=== PATIENT | male | born 1955 | race Caucasian/White ===

== ENCOUNTER 2016-09-05 09:30 | Emergency (ER) | payer BC, OTHER ==
[~2016-09-05] VITALS: Ht 175.3 cm; Wt 98.1 kg
[2016-09-05 09:39] VITALS: TEMP 36.5; Ht 175.3 cm; Wt 98.1 kg
[2016-09-05] MEDS ORDERED: HYDROmorphone INJ 1 MG/ML SYR IV STA (09:50)
[2016-09-05] MEDS ORDERED: SODIUM CHLORIDE 0.9% 1000ML 1,000 ML IV STA (09:50)
[2016-09-05] MEDS ORDERED: KETOROLAC TROMETHAMINE 30 MG/ML VIAL IV STA (09:50)
[2016-09-05] MEDS ORDERED: ONDANSETRON INJ 2 MG/ML 2 ML VIAL IV STA (09:50)
[2016-09-05 10:11] LABS: URINE APPEARANCE CLOUDY (CLEAR); URINE COLOR ORANGE; URINE EPITHELIAL CELL AUTO >30 /lpf (0-5); URINE NITRITE NEG (NEG); URINE PH 5.5 (4.5-7.5); URINE SPECIFIC GRAVITY 1.036 (1.000-1.030); UROBILINOGEN NEG (NEG)
--- NOTE | 2016-09-05 10:12 | EMERGENCY ROOM VISIT NOTE ---
History Report prepared by Tala: Javier Cano Under the Supervision of: Dr. Luis Adkins M.D. First contact with patient: 09:46 Chief Complaint: FLANK PAIN Stated Complaint: BACK PAIN POSS. KIDNEY STONE History of Present Illness The patient is a 61 year old male who presents to the Emergency Room with complaints of worsening left sided flank pain that started three days ago. He rates his pain as a 9/10 in severity and reports that the pain radiates to his abdomen. The patient states that he has been also been experiencing swelling to her left flank and vomiting that occurred prior to arrival. The patient states that his symptoms worsened today when he woke up around 0600, which prompted him to visit the ED. He admits that he had a bowel movement around 0630, but states that he always feels that he needs to have a bowel movement, but usually is not able to. Source of History: patient Onset: three days ago Position: other (left sided CVA) Symptom Intensity: 9/10 Timing: worsening Associated Symptoms: + abdominal pain Review of Systems See HPI for pertinent positives & negatives. A total of 10 systems reviewed and were otherwise negative. Past Medical & Surgical Medical Problems: (1) Diabetes (2) Kidney stones (3) Pneumonia Surgical Problems: (1) [place] teeth extracted Family History Heart disease Social History Smoking Status: Never Smoker Smokeless Tobacco Use: No Alcohol Use: occasionally Drug Use: none Marital Status: Housing Status: lives with significant other Occupation Status: employed Current/Historical Medications Scheduled Aspirin (Aspirin Ec), 81 MG PO DAILY Glimepiride (Glimepiride), Unknown Dose PO DAILY Insulin Glargine (Lantus), 40 UNITS SC AMPM Metformin Hcl (Glucophage), 1,000 MG PO BID Simvastatin (Zocor), Unknown Dose PO QPM Tamsulosin Hcl (Flomax), 0.4 MG PO DAILY Scheduled PRN Oxycodone/Acetaminophen 5MG/325MG (Percocet 5MG/325MG), 1-2 TAB PO Q4H PRN for Pain Allergies Coded Allergies: Penicillins (Unverified Allergy, Mild, UNKNOWN, 09/05/16) Physical Exam Vital Signs Date Time Temp Pulse Resp B/P (MAP) Pulse Ox O2 Delivery O2 Flow Rate FiO2 09/05/16 12:03 76 14 137/81 98 09/05/16 11:29 76 14 137/81 98 Room Air 09/05/16 10:36 72 20 161/101 97 Room Air 09/05/16 09:39 36.5 71 18 186/101 97 Room Air Physical Exam GENERAL: Patient is a healthy-appearing well-nourished 61 year old male. HEAD: Normocephalic atraumatic EYES: Ocular movements intact pupils equal and react to light OROPHARYNX mucous membranes are moist no exudates present no erythema or edema present NECK: Supple no nuchal rigidity CHEST: Good equal expansion LUNGS: Clear and equal to auscultation CARDIAC: Normal S1 and S2 ABDOMEN: Soft nontender no guarding BACK: No CVA tenderness EXTREMITIES: No pain upon palpation normal muscle strength in all groups no clubbing cyanosis or edema NEURO: Patient is following commands and answering questions appropriately. Alert and oriented x3 Cranial Nerves 2-12 grossly intact Medical Decision & Procedures ER Provider Diagnostic Interpretation: CT results as stated below per my review and radiologist interpretation: CT OF THE ABDOMEN AND PELVIS WITHOUT CONTRAST, STONE PROTOCOL CLINICAL HISTORY: Left flank pain. Microscopic hematuria. COMPARISON STUDY: None. TECHNIQUE: Helical axial images of the abdomen and pelvis were obtained without IV or oral contrast according to renal stone protocol. A dose lowering technique was utilized adhering to the principles of ALARA. FINDINGS: A 4 mm distal left ureteral calculus results in mild left hydroureteronephrosis with mild left perinephric infiltration. There are no additional urinary calculi. Evaluation the remainder of the abdomen and pelvis is suboptimal on this unenhanced exam. The liver, spleen, adrenal glands and pancreas are normal. There is no right hydronephrosis. The appendix is normal. CT results as stated below per my review and radiologist interpretation: There is no bowel obstruction. There is colonic diverticulosis without evidence for acute diverticulitis. There are fat-containing bilateral inguinal hernias. There is no ascites. There are no suspicious osseous lesions. IMPRESSION: 4 mm distal left ureteral calculus with resultant mild left hydroureteronephrosis and mild left perinephric and periureteral infiltration. Electronically signed by: Ean Bradley M.D. 09/05/2016 11:35 AM Dictated Date/Time: 09/05/2016 11:31 AM Laboratory Results 09/05/16 10:15 Red Blood Count 4.95, Mean Corpuscular Volume 86.7, Mean Corpuscular Hemoglobin 31.1, Mean Corpuscular Hemoglobin Concent 35.9, Mean Platelet Volume 9.1, Neutrophils (%) (Auto) 76.3, Lymphocytes (%) (Auto) 16.3, Monocytes (%) (Auto) 6.2, Eosinophils (%) (Auto) 0.8, Basophils (%) (Auto) 0.1, Neutrophils # (Auto) 5.99, Lymphocytes # (Auto) 1.28, Monocytes # (Auto) 0.49, Eosinophils # (Auto) 0.06, Basophils # (Auto) 0.01 09/05/16 10:15 Test 09/05/16 09:50 09/05/16 10:15 Urine Color ORANGE Urine Appearance CLOUDY (CLEAR) Urine pH 5.5 (4.5-7.5) Urine Specific [place] 1.036 (1.000-1.030) Urine Protein 1+ (NEG) Urine Glucose (UA) 1+ (NEG) Urine Ketones TRACE (NEG) Urine Occult Blood 3+ (NEG) Urine Nitrite NEG (NEG) Urine Bilirubin NEG (NEG) Urine Urobilinogen NEG (NEG) Urine Leukocyte Esterase TRACE (NEG) Urine WBC (Auto) 1-5 /hpf (0-5) Urine RBC (Auto) >30 /hpf (0-4) Urine Hyaline Casts (Auto) /lpf (0-5) Urine Epithelial Cells (Auto) >30 /lpf (0-5) Urine Bacteria (Auto) NEG (NEG) Urine Pathogenic Casts /lpf (0) Urine Mucus PRESENT (NONE PRSENT) White Blood Count 7.85 K/uL (4.8-10.8) Red Blood Count 4.95 M/uL (4.7-6.1) Hemoglobin 15.4 g/dL (14.0-18.0) Hematocrit 42.9 % (42-52) Mean Corpuscular Volume 86.7 fL (80-100) Mean Corpuscular Hemoglobin 31.1 pg (25-34) Mean Corpuscular Hemoglobin Concent 35.9 g/dl (32-36) Platelet Count 220 K/uL (130-400) Mean Platelet Volume 9.1 fL (7.4-10.4) Neutrophils (%) (Auto) 76.3 % Lymphocytes (%) (Auto) 16.3 % Monocytes (%) (Auto) 6.2 % Eosinophils (%) (Auto) 0.8 % Basophils (%) (Auto) 0.1 % Neutrophils # (Auto) 5.99 K/uL (1.4-6.5) Lymphocytes # (Auto) 1.28 K/uL (1.2-3.4) Monocytes # (Auto) 0.49 K/uL (0.11-0.59) Eosinophils # (Auto) 0.06 K/uL (0-0.5) Basophils # (Auto) 0.01 K/uL (0-0.2) RDW Standard Deviation 39.8 fL (36.4-46.3) RDW Coefficient of Variation 12.4 % (11.5-14.5) Immature Granulocyte % (Auto) 0.3 % Immature Granulocyte # (Auto) 0.02 K/uL (0.00-0.02) Anion Gap 7.0 mmol/L (3-11) Est Creatinine Clear Calc Drug Dose 80.4 ml/min Estimated GFR () 82.9 Estimated GFR (Non- 71.6 BUN/Creatinine Ratio 14.9 (10-20) Calcium Level 9.8 mg/dl (8.5-10.1) Total Bilirubin 1.0 mg/dl (0.2-1) Direct Bilirubin 0.2 mg/dl (0-0.2) Aspartate Amino Transf (AST/SGOT) 25 U/L (15-37) Alanine Aminotransferase (ALT/SGPT) 41 U/L (12-78) Alkaline Phosphatase 65 U/L (45-117) Total Protein 7.8 gm/dl (6.4-8.2) Albumin 4.1 gm/dl (3.4-5.0) Lipase 227 U/L (73-393) Labs reviewed by ED physician. Medications Administered Medications (Trade) Dose Ordered Sig/Joanna Route Start Time Stop Time Status Last Admin Dose Admin Sodium Chloride 1,000 ml @ 999 mls/hr Q1H1M STAT IV 09/05/16 09:50 09/05/16 10:50 DC 09/05/16 10:18 999 MLS/HR Ketorolac Tromethamine (Toradol Inj) 30 mg NOW STAT IV 09/05/16 09:50 09/05/16 09:52 DC 09/05/16 10:17 30 MG Hydromorphone HCl (Dilaudid Inj) 1 mg NOW STAT IV 09/05/16 09:50 09/05/16 09:52 DC 09/05/16 10:18 1 MG Ondansetron HCl (Zofran Inj) 4 mg NOW STAT IV 09/05/16 09:50 09/05/16 09:52 DC 09/05/16 10:17 4 MG Tamsulosin HCl (Flomax Cap) 0.4 mg NOW STAT PO 09/05/16 11:38 09/05/16 11:39 DC 09/05/16 11:53 0.4 MG ED Course 0948: Past medical records reviewed. The patient was evaluated in room B11B. A complete history and physical examination was performed. 0950: Zofran Injection 4 mg IV, Dilaudid Injection 1 mg IV, Toradol Injection 30 mg IV, Sodium Chloride 1000 ml @ 999 mls/hr IV. 1138: Flomax Cap 0.4 mg PO. 1204: Upon reexamination the patient is resting comfortably. I discussed results and treatment plan with the patient. He verbalizes agreement and understanding. The patient is ready for discharge. Medical Decision The differential diagnosis includes but is not limited to: etiologies such as appendicitis, diverticulitis, PUD, biliary pathology, UTI, pancreatitis, obstruction, mesenteric ischemia, aortic pathology, infections, inflammatory bowel disease, renal colic, as well as others were entertained. Medication Reconciliation: I attest that I have personally reviewed the patient' s current medication list Blood Pressure Screening: Patient was found to have an elevated blood pressure and was referred to their primary care doctor for recheck and further treatment This is a 61-year-old male presents emergency department complaining of flank pain. The patient does appear to be uncomfortable. An IV was established, patient given normal saline bolus, Dilaudid, Zofran. Repeat examination revealed improvement in the patient's symptoms. The patient does have a kidney stone on CAT scan. Serial abdominal examinations were performed on the patient in the emergency department in no time did the patient exhibit a surgical abdomen. He is afebrile and I feel can be discharged home for conservative treatment of a kidney stone. He was started on Flomax and I will continue him on Percocet. He has no evidence of infection and urine. Patient was in agreement with treatment plan. Impression Primary Impression: Kidney stone Scribe Attestation The scribe's documentation has been prepared under my direction and personally reviewed by me in its entirety. I confirm that the note above accurately reflects all work, treatment, procedures, and medical decision making performed by me. Departure Information Dispostion Home / Self-Care Prescriptions Oxycodone/Acetaminophen 5MG/325MG (PERCOCET 5MG/325MG) Tab 1-2 TAB PO Q4H Y for Pain, #20 TAB Prov: Luis Adkins MD 09/05/16 Tamsulosin Hcl (FLOMAX) 0.4 Mg Cap 0.4 MG PO DAILY for 10 Days, #10 CAP Prov: Luis Adkins MD 09/05/16 Referrals Chelly Hogan D.O. (PCP) Forms HOME CARE DOCUMENTATION FORM, IMPORTANT VISIT INFORMATION Patient Instructions Hypertension Dc, Kidney Stones - [facility], Kidney Stones Expectant Therapy, Kidney Stones Identify, [facility] Additional Instructions Follow up with DR Ness office Return if you develop fevers or pain out of control You were found to have an elevated blood pressure today (>120 sytolic or >90 diastolic). Per medicare guidelines, you need to follow up with this blood pressure screening with your Primary Care Physician (PCP). For a new PCP call [phone]. You received narcotic or benzodiazepene medication while in the emergency room today. Do not drive, operate heavy machinery, or drink alcohol under the influence of this medication. Take 600 mg Ibuprofen every 6 hours Take Percocet for breakthrough pain You have been examined and treated today on an emergency basis only. This is not a substitute for, or an effort to provide, complete comprehensive medical care. It is impossible to recognize and treat all injuries or illnesses in a single emergency department visit. It is therefore important that you follow up closely with Dr Hogan. Call as soon as possible for an appointment. Thank you for your time and consideration. I look forward to speaking with you again soon. Please don't hesitate to call us if you have any questions.
[2016-09-05 10:38] LABS: BASO % 0.1 %; BASO ABS # 0.01 K/uL (0-0.2); COMPLETE YES; EOS % 0.8 %; HEMATOCRIT 42.9 % (42-52); IG% 0.3 %; LYMPH % 16.3 %; LYMPH ABS # 1.28 K/uL (1.2-3.4); MEAN CELL VOLUME 86.7 fL (80-100); MEAN CORPUSCULAR HEMOGLOBIN 31.1 pg (25-34); MEAN CORPUSCULAR HGB CONC 35.9 g/dl (32-36); MEAN PLATELET VOLUME 9.1 fL (7.4-10.4); MONO % 6.2 %; NEUT % 76.3 %; PLATELET COUNT 220 K/uL (130-400); RED BLOOD COUNT 4.95 M/uL (4.7-6.1); WHITE BLOOD COUNT 7.85 K/uL (4.8-10.8)
[2016-09-05 10:40] LABS: MANUAL MICROSCOPIC REQUIRED? NO; REVIEW REQ? YES; URINE BILIRUBIN NEG (NEG)
[2016-09-05 10:51] LABS: URINE MUCUS PRESENT (NONE PRSENT)
[2016-09-05 10:55] LABS: BUN/CREATININE RATIO 14.9 (10-20); CALCIUM 9.8 mg/dl (8.5-10.1); CREATININE 1.1 mg/dl (0.60-1.40); POTASSIUM 3.9 mmol/L (3.5-5.1)
--- NOTE | 2016-09-05 11:36 | DIAGNOSTIC IMAGING REPORT ---
CT OF THE ABDOMEN AND PELVIS WITHOUT CONTRAST, STONE PROTOCOL CLINICAL HISTORY: Left flank pain. Microscopic hematuria. COMPARISON STUDY: None. TECHNIQUE: Helical axial images of the abdomen and pelvis were obtained without IV or oral contrast according to renal stone protocol. A dose lowering technique was utilized adhering to the principles of ALARA. FINDINGS: A 4 mm distal left ureteral calculus results in mild left hydroureteronephrosis with mild left perinephric infiltration. There are no additional urinary calculi. Evaluation the remainder of the abdomen and pelvis is suboptimal on this unenhanced exam. The liver, spleen, adrenal glands and pancreas are normal. There is no right hydronephrosis. The appendix is normal. There is no bowel obstruction. There is colonic diverticulosis without evidence for acute diverticulitis. There are fat-containing bilateral inguinal hernias. There is no ascites. There are no suspicious osseous lesions. IMPRESSION: 4 mm distal left ureteral calculus with resultant mild left hydroureteronephrosis and mild left perinephric and periureteral infiltration. Electronically signed by: Ean Bradley M.D. 09/05/2016 11:35 AM Dictated Date/Time: 09/05/2016 11:31 AM
[2016-09-05] MEDS ORDERED: TAMSULOSIN HCL 0.4 MG CAP PO STA (11:38)
[2016-09-05] MEDS ORDERED: METF-384 PO (11:39)
[2016-09-05] MEDS ORDERED: GLIM2TAB2 PO (11:39)
[2016-09-05] MEDS ORDERED: SIMV5TAB2 PO (11:41)
[2016-09-05] MEDS ORDERED: ASPI81TA28 PO (11:41)
[2016-09-05] MEDS ORDERED: INSDGI SC (11:41)
[2016-09-05] MEDS ORDERED: TAMS0.4C38 PO (11:44)
[2016-09-05] MEDS ORDERED: OXYC-57 PO (11:44)
[2016-09-05 12:03] VITALS: BP 137/81; PULSE 76; O2SAT 98
== END 2016-09-05 11:55 | disposition home or self-care (01) ==
LOC: C.EDB 09:31
DX: N20.0 Calculus of kidney (principal); N13.2 Hydronephrosis with renal and ureteral calculous obstruction; E11.9 Type 2 diabetes mellitus without complications; Z82.49 Family history of ischemic heart disease and other diseases of the circulatory system; Z79.82 Long term (current) use of aspirin; Z79.4 Long term (current) use of insulin